=== PATIENT | male | born 1985 | race Caucasian/White ===

== ENCOUNTER 2019-06-01 08:52 | Outpatient (CLI) | payer OTHER ==
[~2019-06-01 08:52] MED LIST: EPINEPHrine 1 MG/ML AMP ONE; Gadobenate Dimeglumine 529 MG/1 ML (20ML VIAL) ONE; Iopamidol 300 61% 100 ML VIAL FS ONE; Lidocaine 1% PF 10 ML AMP ONE
--- NOTE | 2019-06-01 10:47 | RAD ---
PROCEDURE: Fluoroscopic left shoulder arthrogram INDICATION: Left shoulder pain COMPARISON: None TECHNIQUE: Informed consent was obtained. Preprocedure ceo na images were obtained of the left shoulde r. The patient was placed supine on the fluoroscopic table. A timeout was performed. Site overlying the left shoulder was prepped and draped in the usual sterile fashion. Buffered 1% lidocaine was admi nistered into the overlying subcutaneous tissues. Under fluoroscopic guidance, a 22-gauge spinal needle was guided down into the left glenohumeral joint. Confirmation of needle localization was conf irmed by injecting 1 cc of the buffered 1% lidocaine. Following this 10 cc of the dilute gadolinium solution MR Mix: 23.5 mL solution containing 10 mL of 0.008 dilution of Multihance, 8 mL Isovue 300, 5 mL 1% Lidocaine, 0.5 mL of 1mg/mL Epinephrine was injected. Contrast was visualized within the left glenohumeral joint with fluoroscopy. The needle was removed. The injection site was then cleanse d and bandage. The patient tolerated the injection without difficulty. Fluoroscopic time: 0.5minutes Fluoroscopic dose: 4.44.mcg/cm 2 FINDINGS: No acute osseous abnormality. IMPRESSION: Successful left shoulder arthrogram. The patient is to have a follow-up MRarthrogram of t he right shoulder. Please see this report for further details.
--- NOTE | 2019-06-01 11:11 | MRI ---
MRI ARTHROGRAM OF THE LEFT SHOULDER: INDICATION: History of left shoulder pain. COMPARISON: Left shoulder arthrogram dated 06/01/2019. TECHNIQUE: Multiplanar multisequence MR images were obtained of the left shoulder following intra-articular admi nistration of a dilute gadolinium solution. Please see the separately dictated left shoulder arthrogram for details concerning the injection technique. FINDINGS: There is a near circumferential tear involving the glenoid labrum with small paralabral cysts seen al jael the posterior margin of the glenoid on image 17 of series 15 measuring 3 and 2.6 mm in size. The labrum is likely intact along its superior margin. There is a focus of articular cartilage [place] involving the anterior inferior glenoid articular surface measuring 7 mm on image 5 of series 3. The rotator cuff is intact. The biceps tendon is located. Biceps anchor complex is intact. There is mild AC joint osteoarthrosis. There is a type II acromion. No abnormal fluid is seen in the subacromial subdeltoid bursa. No apparent muscular atrophy is evident. IMPRESSION: 1. Near circumferential tear of the glenoid labrum extending from approximately the 1:00 through the 11:00 position with the labrum likely being intact at the superior glenoid. There is no evidence of tear extension in the biceps anchor complex. 2. Small focus of articular cartilage delamination involving the anterior inferior glenoid articular surface. 3. Mild acromioclavicular joint osteoarthrosis. Transcribed Date/Time: 06/01/2019 11:19 AM
[2019-06-01] MEDS ORDERED: Magnevist 469MG/ML 20 ML VIAL ONE (15:51)
== END 2019-06-01 08:53 | disposition home or self-care (01) ==
LOC: RAD 08:52
PROVIDERS: ATTEND Orthopaedic Surgery
DX: M25.512 Pain in left shoulder (principal); M19.012 Primary osteoarthritis, left shoulder
CPT/HCPCS: 23350; A9577; A9579; J0171; J2001; Q9967